=== PATIENT | male | born 1955 | race Caucasian/White ===

== ENCOUNTER 2024-03-28 20:03 | Inpatient (IN) | payer OTHER ==
[2024-03-28 23:34] VITALS: BMI 27.8
[2024-03-29] MEDS ORDERED: POLYETHYLENE GLYCOL (HEALTHYLAX) 3350 17 GM PACKET PO PRN (01:43)
[2024-03-29] MEDS ORDERED: LOPERAMIDE HCL 2 MG CAPSULE PO PRN (01:43)
[2024-03-29] MEDS ORDERED: MAG HYDROX/AL HYDROX/SIMETH 30 ML UNIT-DOSE CUP PO PRN (01:43)
[2024-03-29] MEDS ORDERED: MAGNESIUM HYDROX 2400MG/30ML ORAL SUSPENSION 30 ML CUP PO PRN (01:43)
[2024-03-29] MEDS ORDERED: NALOXONE HCL 0.4 MG/ML VIAL IM PRN (01:43)
[2024-03-29] MEDS ORDERED: BENZONATATE 200 MG CAPSULE PO PRN (01:43)
[2024-03-29] MEDS ORDERED: guaiFENesin 600 MG TABLET.ER (FP) PO PRN (01:43)
[2024-03-29] MEDS ORDERED: BENZOCAINE/MENTHOL (CHLORASEPTIC ) LOZENGE MM PRN (01:43)
[2024-03-29] MEDS ORDERED: NALOXONE (NARCAN) HCL 4 MG/0.1 ML SPRAY NS PRN (01:43)
[2024-03-29] MEDS ORDERED: ONDANSETRON *ODT* 4 MG TABLET SL PRN (01:43)
[2024-03-29] MEDS ORDERED: BISMUTH SUBSALICYLATE 524 MG/30 ML PO PRN (01:43)
[2024-03-29] MEDS: chlordiazePOXIDE HCL 25 MG CAPSULE PO PRN (02:02)
[2024-03-29] MEDS: chlordiazePOXIDE HCL 25 MG CAPSULE PO SCH (05:25)
[2024-03-29] MEDS: PRENATAL VITAMINS W/ FOLIC ACID TABLET (FP) PO SCH (10:41)
[2024-03-29 11:30] LABS: HEMATOCRIT 38.4 % (35.4-49); MCH 32.6 pg (25.7-33.7); MCHC 33.9 g/dl (32.0-35.9); MEAN PLT VOLUME 8.2 fl (7.5-11.1); PLATELET COUNT 209 10^3/uL (134-434); RDW 14.4 % (11.9-15.9); WHITE BLOOD COUNT 7.6 K/mm3 (4.0-10.0)
[2024-03-29 11:37] LABS: CALCIUM 8.8 mg/dL (8.5-10.1)
[2024-03-29 11:38] LABS: BLOOD UREA NITROGEN 15.1 mg/dL (7-18)
[2024-03-29 11:41] LABS: CREATININE 0.9 mg/dL (0.55-1.3)
[2024-03-29 11:42] LABS: BILIRUBIN,TOTAL 0.6 mg/dL (0.2-1); TOT PROT 5.4 g/dl (6.4-8.2)
[2024-03-29] MEDS: GABAPENTIN 300 MG CAPSULE PO SCH (13:08)
[2024-03-29] MEDS: QUEtiapine FUMARATE 100 MG TABLET (FP) PO SCH (22:06)
[2024-03-29] MEDS: MELATONIN 5 MG TABLETS PO SCH (22:06)
[2024-03-29] MEDS: THIAMINE 100 MG TABLET PO SCH (22:06)
[2024-03-29] MEDS: NICOTINE POLACRILEX 2 MG GUM BUC PRN (22:09)
[2024-03-30] MEDS: chlordiazePOXIDE HCL 25 MG CAPSULE PO SCH (05:20)
[2024-03-30] MEDS: ACETAMINOPHEN 325 MG TABLET (FP) PO PRN (17:14)
[2024-03-30] MEDS: hydrOXYzine PAMOATE 50 MG CAPSULE (FP) PO PRN (22:24)
[2024-03-30] MEDS: IBUPROFEN 600 MG TABLET (FP) PO PRN (22:24)
[2024-03-31] MEDS ORDERED: chlordiazePOXIDE HCL 10 MG CAPSULE PO PRN
[2024-03-31] MEDS: chlordiazePOXIDE HCL 10 MG CAPSULE PO SCH (05:35)
[2024-03-31] MEDS: IBUPROFEN 400 MG TABLET (FP) PO PRN (22:14)
[2024-04-01] MEDS: chlordiazePOXIDE HCL 10 MG CAPSULE PO SCH (05:55)
[2024-04-02] MEDS: chlordiazePOXIDE HCL 10 MG CAPSULE PO ONE (05:53)
[2024-04-02] MEDS: NALTREXONE HCL 50 MG TABLET PO SCH (21:38)
[2024-04-04] MEDS ORDERED: BENZOCAINE 20 % GEL TUBE MM PRN (12:30)
[2024-04-04] MEDS: SELENIUM SULFIDE 2.25% 180 ML SHAMPOO TP SCH (13:55)
[2024-04-04] MEDS: AMOX TR/POT CLAV 500MG/125MG TABLETS (FP) PO SCH (16:57)
[2024-04-04] MEDS: chlordiazePOXIDE 5 MG CAPSULE PO PRN (16:59)
[2024-04-04] MEDS: GABAPENTIN 300 MG CAPSULE PO SCH (21:17)
[2024-04-05 13:59] LABS: PROTHROMBIN TIME (PATIENT) 11.3 SEC (9.7-13.0)
[2024-04-06] MEDS: ALBUTEROL SO4 HFA INHALER IH PRN (12:02)
[2024-04-11] MEDS: ALBUTEROL SO4 HFA INHALER IH PRN (16:00)
[2024-04-17] MEDS: QUEtiapine FUMARATE 50 MG TABLET PO SCH (21:03)
[2024-04-21 06:49] VITALS: RESP 18
[2024-04-23] MEDS: AMOX TR/POT CLAV 500MG/125MG TABLETS (FP) PO SCH (17:10)
[2024-04-23] MEDS: NALTREXONE MICROSPHERES (VIVITROL) 380 MG DISP.SYRIN IM ONE (17:29)
[2024-04-24] MEDS: NALTREXONE MICROSPHERES (VIVITROL) 380 MG DISP.SYRIN IM ONE (10:09)
[2024-04-24] MEDS: NALTREXONE HCL 50 MG TABLET PO SCH (13:18)
[2024-04-25 06:34] VITALS: BP 128/70; PULSE 83; TEMP 97.5
== END 2024-04-25 12:11 | disposition home or self-care (01) | DRG 895 ==
LOC: YASAS 20:03 → Y3N 03-29 02:55 → Y3W 04-02 14:34
PROVIDERS: ADMIT Allergy & Immunology; ATTEND Psychiatry & Neurology Pain Medicine
PROC: HZ42ZZZ Group Counseling for Substance Abuse Treatment, Cognitive-Behavioral (ICD-10-PCS; principal; 2024-03-29)
DX: F19.20 Other psychoactive substance dependence, uncomplicated (principal); F10.20 Alcohol dependence, uncomplicated; F31.9 Bipolar disorder, unspecified; F19.24 Other psychoactive substance dependence with psychoactive substance-induced mood disorder; F41.9 Anxiety disorder, unspecified; K02.9 Dental caries, unspecified; Z87.891 Personal history of nicotine dependence
CPT/HCPCS: 36415; 80053; 80305; 80307; 82140; 82652; 83735; 85027; 85610; 86780; 87811; 93005; 93010